=== PATIENT | female | born 1965 | race Caucasian/White ===

== ENCOUNTER 2019-11-08 15:15 | Emergency (ER) | payer OTHER ==
[~2019-11-08] VITALS: Ht 162.6 cm; Wt 79.8 kg
[2019-11-08] MEDS ORDERED: SUMA25 PO (15:30)
[2019-11-08] MEDS ORDERED: Seroquel Xr50 MG PO (15:30)
[2019-11-08] MEDS ORDERED: Aspir 8181 MG PO (15:30)
[2019-11-08] MEDS ORDERED: DOXE10 PO (15:31)
[2019-11-08] MEDS ORDERED: PROP160ER PO (15:31)
[2019-11-08] MEDS ORDERED: LAMO100 PO (15:32)
[2019-11-08] MEDS ORDERED: HYDHCL25 PO (15:33)
[2019-11-08 16:55] LABS: Calcium, Ionized (POC) 1.25 mmol/L (1.10-1.46); Chloride (POC) 104 mmol/L (98-108); Creatinine (POC) 0.8 mg/dL (0.6-1.0); Glucose (ISTAT POC) 84 mg/dL (70-99); Hemoglobin (POC) 13.9 g/dL (12.0-16.0); Potassium (POC) 3.9 mmol/L (3.5-5.5); Sodium (POC) 140 mmol/L (135-148); Total CO2 (POC) 27 mmol/L (21-32)
== END 2019-11-08 17:58 | disposition home or self-care (01) ==
LOC: ER 15:15
PROVIDERS: Emergency Medicine
DX: S09.90XA Unspecified injury of head, initial encounter (principal); F31.9 Bipolar disorder, unspecified; Z88.0 Allergy status to penicillin; Z88.8 Allergy status to other drugs, medicaments and biological substances; Z91.048 Other nonmedicinal substance allergy status; Z88.1 Allergy status to other antibiotic agents; Z88.4 Allergy status to anesthetic agent; Z79.899 Other long term (current) drug therapy; Z79.82 Long term (current) use of aspirin; W22.8XXA Striking against or struck by other objects, initial encounter
CPT/HCPCS: 70450; 80047; 85014; 99284-25; A9270

== ENCOUNTER → 2020-08-22 | Outpatient (CLI) | payer SELFPAY ==
[~2020-08-22] MED LIST: Aspir 8181 MG PO; DOXE10 PO; HYDHCL25 PO; LAMO100 PO; PROP160ER PO; SUMA25 PO; Seroquel Xr50 MG PO
[2020-08-26 09:09] LABS: HSV-1 DNA Negative (Negative); HSV-2 DNA Negative (Negative)
== END ==
LOC: LAB 13:45 → LAB SHORT 13:45
PROVIDERS: Physician Assistant Medical
DX: R21 Rash and other nonspecific skin eruption (principal); L20.89 Other atopic dermatitis; L50.8 Other urticaria; L29.8 Other pruritus
CPT/HCPCS: 87529; 87798

== ENCOUNTER 2020-09-03 13:22 | Emergency (ER) | payer OTHER ==
[~2020-09-03] VITALS: Ht 165.1 cm; Wt 80.7 kg
[2020-09-03 13:57] LABS: BASOPHILS ABSOLUTE AUTO 0.05 K/mm3 (0.00-0.23); BASOPHILS PERCENT AUTO 1 % (0-2); EOSINOPHILS ABSOLUTE AUTO 0.11 K/mm3 (0.00-0.68); EOSINOPHILS PERCENT AUTO 2 % (0-6); Hematocrit 41.9 % (33.0-51.0); Hemoglobin 14.4 g/dL (11.5-16.0); IMMATURE GRAN ABSOLUTE AUTO 0.03 K/mm3 (0.00-0.10); IMMATURE GRAN PERCENT AUTO 1 % (0-1); LYMPHOCYTES ABSOLUTE AUTO 2.32 K/mm3 (0.84-5.20); LYMPHOCYTES PERCENT AUTO 39 % (21-46); MONOCYTES ABSOLUTE AUTO 0.55 K/mm3 (0.16-1.47); MONOCYTES PERCENT AUTO 9 % (4-13); Mean Corpuscular HGB 31.6 pg (26.0-34.0); Mean Corpuscular HGB Conc 34.4 g/dL (31.5-36.5); Mean Corpuscular Volume 92 fL (80-100); Mean Platelet Volume 9.4 fL (9.1-12.4); NEUTROPHILS ABSOLUTE AUTO 2.95 K/mm3 (1.96-9.15); NEUTROPHILS PERCENT AUTO 49 % (41-73); Platelet Count 247 K/mm3 (150-400); RDW Coefficient Variation 14.6 % (11.7-14.2); Red Blood Cell Count 4.56 M/mm3 (3.80-5.20); White Blood Cell Count 6.01 K/mm3 (4.00-11.30)
[2020-09-03 14:28] LABS: Alanine Aminotransfer (ALT/SGP 15 U/L (12-78); Albumin, Blood 3.5 g/dL (3.4-5.0); Alk Phos 82 U/L (50-136); Anion Gap 4 mmol/L (6-16); Aspartate Aminotrans (AST/SGOT 13 U/L (12-37); Bilirubin, Total 0.7 mg/dL (0.1-1.0); Blood Urea Nitrogen 11 mg/dL (8-24); Bun/Creatinine Ratio 14.5 (12.0-20.0); CO2, Blood 24 mmol/L (21-32); Chloride, Blood 110 mmol/L (98-108); Creatinine, Blood 0.76 mg/dL (0.40-1.00); Globulin, Blood 3.6 g/dL (2.2-4.0); Glomerular Filtration Rate >60 (60-); Glucose, Blood 99 mg/dL (70-99); Potassium, Blood 3.8 mmol/L (3.5-5.5); Sodium, Blood 138 mmol/L (136-145); Total Protein, Blood 7.1 g/dL (6.4-8.2)
== END 2020-09-03 19:30 | disposition home or self-care (01) ==
LOC: ER 13:22
PROVIDERS: Physician Assistant
DX: T63.301A Toxic effect of unspecified spider venom, accidental (unintentional), initial encounter (principal); R20.8 Other disturbances of skin sensation; Z88.0 Allergy status to penicillin; Z88.4 Allergy status to anesthetic agent; Z91.030 Bee allergy status; Z79.82 Long term (current) use of aspirin; Z79.899 Other long term (current) drug therapy
CPT/HCPCS: 36415; 70450; 70496; 70498; 80053; 83690; 85025; 93005; 93010; 99284-25; Q9967

== ENCOUNTER 2024-05-13 10:16 | Inpatient (IN) | payer MEDICARE, OTHER ==
[2024-05-13] VITALS (14 sets, daily range): BP systolic 106–156; BP diastolic 64–86
[~2024-05-13] VITALS: Ht 162.5 cm; Wt 82.6 kg
[~2024-05-13 10:16] MED LIST changes: +Clindamycin 600mg in D5W 50 ML IV SCH; +GABA300 PO; +Lactated Ringer's 1,000 ML IV SCH
[2024-05-13] MEDS ORDERED: Dexamethasone Sod Phos 10 MG/ML 1ML VIAL ONE (10:44)
[2024-05-13] MEDS ORDERED: Ondansetron HCl 2 MG / ML 2ML Vial ONE (10:44)
[2024-05-13] MEDS ORDERED: Ketorolac Tromethamine 30mg Vial ONE (10:44)
[2024-05-13] MEDS ORDERED: Rocuronium Bromide 10 MG/ML 5ML Injection IV ONE ×2 (10:44→15:21)
[2024-05-13] MEDS ORDERED: propofoL 20 ML IV ONE (10:44)
[2024-05-13] MEDS ORDERED: FentaNYL Citrate 50 MCG/ML 5 ML Injection ONE (10:44)
[2024-05-13] MEDS ORDERED: Sugammadex Sodium 200 MG/2ML SDV (100 MG/ML) ONE (10:44)
--- NOTE | 2024-05-13 11:06 | NUR ---
History, Chart, Medications and Allergies reviewed before start of procedure. Lungs clear T/O to Auscultation. Patient confirms NPO status and agrees with scheduled surgery. Pre-Op teaching done. Pt verbalizes understanding. Patient reports completing Chlorhexadine shower X2 prior to admission to hospital.
[2024-05-13] MEDS ORDERED: Bupivacaine 0.25% Epi 1:200000 30 ML Vial ONE (12:46)
[2024-05-13] MEDS ORDERED: Naloxone HCl 0.4MG / ML 1ML Vial IV PRN (13:45)
[2024-05-13] MEDS ORDERED: Lactated Ringer's 1,000 ML IV SCH (13:45)
[2024-05-13] MEDS ORDERED: Simethicone 80 MG Chew PO PRN (13:45)
[2024-05-13] MEDS ORDERED: Promethazine HCl 12.5 MG Supp PR PRN (13:45)
[2024-05-13] MEDS ORDERED: Promethazine HCl 25 MG Tab PO PRN (13:45)
[2024-05-13] MEDS ORDERED: OxyCODONE 5 mg/Acetamin 325 mg TABLET PO PRN (13:50)
[2024-05-13] MEDS ORDERED: DiphenhydrAMINE HCL 25 MG Cap PO PRN (13:50)
[2024-05-13] MEDS ORDERED: FLU VACC TS2024-25(6MOS UP)/PF 45 MCG/0.5 ML SYRINGE IM PRN (13:50)
[2024-05-13] MEDS ORDERED: Ondansetron 4 MG TAB PO PRN (13:50)
[2024-05-13] MEDS ORDERED: Ondansetron HCl 2 MG / ML 2ML Vial IV PRN (13:50)
[2024-05-13] MEDS ORDERED: Metoprolol Tartrate 5 ML IV ONE (13:54)
[2024-05-13] MEDS ORDERED: HYDROmorphone HCl/Pf 1MG SYR IV PRN (13:55)
[2024-05-13] MEDS ORDERED: Gentamicin Sulfate 100 MG in NS 100 ML IV ONE (13:55)
[2024-05-13] MEDS ORDERED: Ketorolac Tromethamine 30mg Vial IV PRN (14:15)
[2024-05-13] MEDS ORDERED: HYDROmorphone HCl/Pf 1MG SYR ONE (16:11)
[2024-05-13] MEDS ORDERED: FentaNYL Citrate 50 MCG/ML 2 ML Injection ONE (16:18)
--- NOTE | 2024-05-13 17:25 | NUR ---
ARRIVAL POST-OP LAP HYSTER 4 LAP SITE JENA C/D/I. WOUND GLUE. PATIENT IS SLITGHLY NAUSEATED. WALKES TO BATHROOM SBA VOIDS 50ML. EPIFANIO PAD IS IN PLACE SCANT DRNG. S/S. PATIENT REPORTS 8/10 PAIN. K PAD IN PLACE. IVF RUNNING @ 70ML/HR. SIPS WATER AND RESTING AT THIS TIME BP STABLE HR 80S. SATS 95-98% RA. CALL LIGHT IN REACH.
--- NOTE | 2024-05-13 18:30 | NUR ---
SUMMARY POST OP VITALS STABLE, UP VOIDING. MEDICATED FOR NAUSEA, MEDICATED PER EMAR FOR PAIN. IVF RUNNING. ABLE TO SIP WATER. SBA TO BATHROOM. CALLS APPROPRIATELY.
[2024-05-13] MEDS ORDERED: Clindamycin 600mg in D5W 50 ML IV SCH (19:00)
[2024-05-14] VITALS (7 sets, daily range): BP systolic 105–127; BP diastolic 69–78
[2024-05-14 05:42] LABS: BASOPHILS ABSOLUTE AUTO 0.01 K/mm3 (0.00-0.23); BASOPHILS PERCENT AUTO 0 % (0-2); EOSINOPHILS ABSOLUTE AUTO 0.03 K/mm3 (0.00-0.68); EOSINOPHILS PERCENT AUTO 0 % (0-6); Hematocrit 37.1 % (33.0-51.0); IMMATURE GRAN ABSOLUTE AUTO 0.03 K/mm3 (0.00-0.10); IMMATURE GRAN PERCENT AUTO 0 % (0-1); LYMPHOCYTES ABSOLUTE AUTO 1.23 K/mm3 (0.84-5.20); LYMPHOCYTES PERCENT AUTO 12 % (21-46); MONOCYTES ABSOLUTE AUTO 0.35 K/mm3 (0.16-1.47); MONOCYTES PERCENT AUTO 4 % (4-13); Mean Corpuscular HGB 33.2 pg (26.0-34.0); Mean Corpuscular Volume 95 fL (80-100); Mean Platelet Volume 9.4 fL (9.1-12.4); NEUTROPHILS ABSOLUTE AUTO 8.33 K/mm3 (1.96-9.15); NEUTROPHILS PERCENT AUTO 84 % (41-73); Platelet Count 271 K/mm3 (150-400); RDW Coefficient Variation 12.7 % (11.7-14.2); RDW Standard Deviation 44.4 fL (35.1-46.3); Red Blood Cell Count 3.91 M/mm3 (3.80-5.20); White Blood Cell Count 9.98 K/mm3 (4.00-11.30)
--- NOTE | 2024-05-14 07:47 | NUR ---
SHIFT SUMMARY NOC. PT POD 1 FOR ROBOTIC LAP HYSTER WITH DR. CANTOR. LAP SITES X4 ARE C/D/I WITH SOME BRUISING. PT NO LONGER HAVING LIGHT PINK BLEEDING ON EPIFANIO PAD. PLACED ABDOMINAL BINDER WITH REPORTED IMPROVEMENT IN PAIN. PT MEDICATED FOR PAIN WITH SOME REPORTED RELIEF. PT VERBALIZED NAUSEA BUT DENIED MEDICATION WHEN OFFERED. PT TEARFUL AT TIMES, MOOD IMPROVED WITH THERAPEUTIC COMMUNICATION AND SUPPORT. CALL LIGHT IN REACH.
[2024-05-14] MEDS ORDERED: Enoxaparin 40 MG/0.4 ML SYR SC SCH (09:00)
--- NOTE | 2024-05-14 17:43 | NUR ---
SHIFT SUMMARY POD 1 ROBOTIC LAP HYSTER. X4 LAP SITES TO ABD ARE CDI. ABD BINDER IN PLACE. PT SBA/INDEP TO RESTROOM AND AMBULATING HALLWAY WITH FWW. PT REPORTS PASSING FLATUS, CATINA SMALL AMOUNTS OF PO INTAKE, VOIDING SPONTANEOUSLY WITH MINIMAL VAGINAL BLEEDING. 2 PERCOCET/TORADOL FOR PAIN CONTROL. PT CAN BE ANXIOUS AT TIMES. SUPPORT PROVIDED PRN. PLAN TO D/C TOMORROW. CALL LIGHT WITHIN REACH.
[2024-05-15 04:45] VITALS: BP 121/79
--- NOTE | 2024-05-15 05:51 | NUR ---
SHIFT SUMMARY NOC. PT POD 2 FOR ROBOTIC LAP HYSTER. LAP SITES C/D/I WITH MILD BRUISING NOTED. PT HAD FRIEND AT BEDSIDE 1ST HALF OF SHIFT. PT MEDICATED FOR PAIN WITH REPORTED RELIEF OF SX. DENIES N/V. AMBULATING TO BR WITH SBA AND VOIDING. PT MAKES NEEDS KNOWN, CALL LIGHT IN REACH.
[2024-05-15 08:02] VITALS: BP 130/80
[2024-05-15] MEDS ORDERED: SIME80CH PO (11:02)
[2024-05-15] MEDS ORDERED: PROMETHAZINE12.5 M1 PO (11:03)
--- NOTE | 2024-05-15 14:45 | NUR ---
DISCHARGE PT EDUCATED ON AND RECIEVED PRINTED DISCHARGE INSTRUCTIONS AND VERBALIZED AN UNDERSTANDING. PT FILLED NEW RX PRIOR TO SURGERY. IV DC'D. PT LEFT WITH ALL PERSONAL BELONGINGS. PT ESCORTED OUT TO VEHICLE VIA W/C AND PT SPOUSE TO TAKE PT HOME.
== END 2024-05-15 14:51 | disposition home or self-care (01) | DRG 742 ==
LOC: SURS 10:16 → ORSCMMR 10:16 → ORD 11:30 → MEDS 13:42 → ORSCMMR 13:42 → SURS 16:48 → MEDS 05-14 16:09 → ORSCMMR 05-15 14:51 → MEDS 05-15 14:51 → SURS 05-15 14:51
PROVIDERS: ADMIT Obstetrics & Gynecology
PROC: 0UT6FZZ Resection of Left Fallopian Tube, Via Natural or Artificial Opening With Percutaneous Endoscopic Assistance (ICD-10-PCS; 2024-05-13)
PROC: 8E0W4CZ Robotic Assisted Procedure of Trunk Region, Percutaneous Endoscopic Approach (ICD-10-PCS; 2024-05-13)
PROC: 0UT9FZZ Resection of Uterus, Via Natural or Artificial Opening With Percutaneous Endoscopic Assistance (ICD-10-PCS; principal; 2024-05-13 11:30)
DX: D25.0 Submucous leiomyoma of uterus (principal); D68.51 Activated protein C resistance; N80.03 Adenomyosis of the uterus; N92.1 Excessive and frequent menstruation with irregular cycle; N94.12 Deep dyspareunia; N94.6 Dysmenorrhea, unspecified; E66.9 Obesity, unspecified; Z68.31 Body mass index [BMI] 31.0-31.9, adult; F31.9 Bipolar disorder, unspecified; Z79.899 Other long term (current) drug therapy; F43.10 Post-traumatic stress disorder, unspecified
CPT/HCPCS: 36415; 85025; 86850; 86900; 86901; 88307; 94760; 94762; A9270; J1100; J1171; J1580; J1650; J1885; J2405; J2704; J3010; J7120

== ENCOUNTER 2024-06-02 16:45 | Emergency (ER) | payer OTHER, MEDICARE ==
[~2024-06-02] VITALS: Ht 167.6 cm; Wt 83.9 kg
[~2024-06-02 16:45] MED LIST changes: -Clindamycin 600mg in D5W 50 ML IV SCH; -Lactated Ringer's 1,000 ML IV SCH; +PROMETHAZINE12.5 M1 PO; +SIME80CH PO
[2024-06-02 17:05] LABS: BASOPHILS ABSOLUTE AUTO 0.02 K/mm3 (0.00-0.23); BASOPHILS PERCENT AUTO 0 % (0-2); EOSINOPHILS PERCENT AUTO 1 % (0-6); Hematocrit 40.9 % (33.0-51.0); Hemoglobin 14.5 g/dL (11.5-16.0); IMMATURE GRAN ABSOLUTE AUTO 0.05 K/mm3 (0.00-0.10); IMMATURE GRAN PERCENT AUTO 1 % (0-1); LYMPHOCYTES ABSOLUTE AUTO 0.63 K/mm3 (0.84-5.20); LYMPHOCYTES PERCENT AUTO 8 % (21-46); MONOCYTES ABSOLUTE AUTO 0.24 K/mm3 (0.16-1.47); MONOCYTES PERCENT AUTO 3 % (4-13); Mean Corpuscular HGB 33.1 pg (26.0-34.0); Mean Corpuscular HGB Conc 35.5 g/dL (31.5-36.5); Mean Corpuscular Volume 93 fL (80-100); Mean Platelet Volume 8.9 fL (9.1-12.4); NEUTROPHILS ABSOLUTE AUTO 7.14 K/mm3 (1.96-9.15); NEUTROPHILS PERCENT AUTO 87 % (41-73); Platelet Count 237 K/mm3 (150-400); RDW Coefficient Variation 12.3 % (11.7-14.2); RDW Standard Deviation 42.7 fL (35.1-46.3); Red Blood Cell Count 4.38 M/mm3 (3.80-5.20); White Blood Cell Count 8.18 K/mm3 (4.00-11.30)
[2024-06-02 17:39] LABS: Albumin, Blood 3.4 g/dL (3.4-5.0); Bilirubin, Total 0.9 mg/dL (0.1-1.0); Bun/Creatinine Ratio 15.5 (12.0-20.0); Calcium, Blood 8.2 mg/dL (8.5-10.1); Creatinine, Blood 0.71 mg/dL (0.40-1.00); Globulin, Blood 3.3 g/dL (2.2-4.0); Potassium, Blood 3.9 mmol/L (3.5-5.5); Total Protein, Blood 6.7 g/dL (6.4-8.2)
[2024-06-02] MEDS ORDERED: Morphine Sulfate 4 MG/1 ML Injection IV ONE (18:55)
[2024-06-02] MEDS ORDERED: Ondansetron HCl 2 MG / ML 2ML Vial IV ONE (18:55)
[2024-06-02 19:30] VITALS: BP 115/76
[2024-06-02] MEDS ORDERED: RX Prepack 6 Tabs Oxycodone 5mg UD ONE (19:55)
[2024-06-02] MEDS ORDERED: RX Prepack 2 Tabs Ondansetron ODT 4MG UD ONE (19:55)
== END 2024-06-02 20:08 | disposition home or self-care (01) ==
LOC: ER 16:45
PROVIDERS: Student in an Organized Health Care Education/Training Program
DX: S39.012A Strain of muscle, fascia and tendon of lower back, initial encounter (principal); S30.1XXA Contusion of abdominal wall, initial encounter; M62.830 Muscle spasm of back; D68.51 Activated protein C resistance; Z91.030 Bee allergy status; Z88.0 Allergy status to penicillin; Z88.1 Allergy status to other antibiotic agents; Z88.8 Allergy status to other drugs, medicaments and biological substances; Z91.02 Food additives allergy status; Z79.899 Other long term (current) drug therapy; Z59.89 Other problems related to housing and economic circumstances; V89.2XXA Person injured in unspecified motor-vehicle accident, traffic, initial encounter
CPT/HCPCS: 74177; 80053; 83690; 85025; 96374-59; 96375; 99284-25; A9270; J2270; J2405; Q9967

== ENCOUNTER 2025-01-15 00:25 | Emergency (ER) | payer MEDICARE, OTHER ==
[~2025-01-15] VITALS: Ht 162.6 cm; Wt 82.5 kg
[2025-01-15 02:21] VITALS: BP 104/61
== END 2025-01-15 02:21 | disposition home or self-care (01) ==
LOC: ER 00:25
DX: S61.213A Laceration without foreign body of left middle finger without damage to nail, initial encounter (principal); W26.0XXA Contact with knife, initial encounter; Z79.899 Other long term (current) drug therapy; Z91.030 Bee allergy status; Z88.0 Allergy status to penicillin; Z88.8 Allergy status to other drugs, medicaments and biological substances
CPT/HCPCS: 12001; 90471; 90715; 99282-25